=== PATIENT | female | born 1990 | race Caucasian/White ===

== ENCOUNTER 2023-02-06 21:59 | Emergency (ER) | payer OTHER, SELFPAY ==
--- NOTE | ~2023-02-06 | XR_ITS ---
EXAMINATION: XR FOOT, LEFT CLINICAL INFORMATION: Rule out foreign body. Stepped on glass. COMPARISON: None available. TECHNIQUE: AP, lateral, and oblique views of the left foot. FINDINGS: No fracture or dislocation. Alignment is maintained. Joint spaces are maintained. No radiopaque foreign body. XR/XR foot LT min 3V IMPRESSION: Normal left foot. No radiopaque foreign body.
[2023-02-06 22:48] VITALS: BP 134/86; PULSE 92; RESP 18; TEMP 36.9; O2SAT 100; BMI 38.0
[2023-02-07] MEDS: Diphth,Pertus(ACell),Tet Adult 0.5 ML SYRINGE IM (01:41)
[2023-02-07] MEDS: Lidocaine HCl 1 % 20 ML VIAL SUBCUT (01:42)
[2023-02-07 01:44] VITALS: BP 125/80; PULSE 76; RESP 14; TEMP 36.8; O2SAT 99
[2023-02-07 03:17] VITALS: BP 139/88; PULSE 83; RESP 16; O2SAT 100
--- NOTE | 2023-02-07 03:33 | ED_ITS ---
HPI - Wound/Laceration General Chief Complaint: Wound/Laceration Stated Complaint: laceration left foot Time Seen by Provider: 02/07/23 01:19 Source: patient Mode of arrival: ambulatory Limitations: no limitations History of Present Illness HPI narrative: 32-year-old female presents with laceration left foot. Laceration happened prior to arrival. Was a large piece of glass. She removed the glass. Pain is mild to moderate. Worse with ambulation. The pain does not radiate. There is no numbness or tingling. No weakness. Tetanus status is unknown. Related Data Allergies Allergy/AdvReac Type Severity Reaction Status Date / Time Penicillins Allergy Palpitation Verified 02/06/23 22:47 s Sulfa (Sulfonamide Allergy Rash Verified 02/06/23 22:47 Antibiotics) Review of Systems Review of Systems: CONSTITUTIONAL: Denies weight loss, fever and chills. HEENT: Denies changes in vision and hearing. RESPIRATORY: Denies SOB and cough. CV: Denies palpitations no CP. GI: Denies abdominal pain, nausea, vomiting and diarrhea. : Denies dysuria and urinary frequency. MSK: Denies myalgia and joint pain. SKIN: Denies rash and pruritus. NEUROLOGICAL: Denies headache and syncope. PSYCHIATRIC: Denies recent changes in mood. Denies anxiety and depression. All other ROS are negative unless in HPI PMFSH Social History Social History Alcohol intake: current Alcohol intake frequency: a few times a week Smoked in Last 30 Days: No Use of substances other than those prescribed or required for medical reasons: Yes Substance Use Type: Marijuana Substance Use Frequency: Weekly Advance Directives: No Advance Directives Information Provided: Yes Patient : No Physical Exam Vital Signs: Vital Signs: Last Vital Signs Temp 98.3 F 02/07/23 01:44 Pulse 83 02/07/23 03:17 Resp 16 02/07/23 03:17 BP 139/88 02/07/23 03:17 Pulse Ox 100 02/07/23 03:17 O2 Del Method Room Air 02/07/23 03:17 BMI result Body Mass Index 38.0 GEN: Well developed, no acute distress, alert, oriented HEENT: Normocephalic, atraumatic, normal external ears, nose appears normal Eyes: Normal to appearance Neck: Supple, no lymphadenopathy Respiratory: Talks in complete sentences, no respiratory distress Extremities: No clubbing cyanosis or edema Neurologic: No focal neurologic deficits, cranial nerves 2-12 intact, gait n ormal Skin: No rash 3.5 cm to the left lateral plantar aspect of foot Extrem: Ankle/foot/toe images: 1. Course Course Course Narrative: Patient presents with laceration left foot. There are no retained foreign body on x-ray or on physical exam. Sutures were placed. Wound care instructions were discussed. Patient will follow-up in 1 week to 10 days for suture removal. Medications Administered Discontinued Medications Generic Name Dose Route Start Last Admin Trade Name Freq PRN Reason Stop Dose Admin Diphtheria/Tetanus/Acell Pertussis 0.5 ml 02/07/23 01:33 02/07/23 01:41 Diphth,Pertus(Acell),Tet Adult 0.5 Ml Syringe IM 02/07/23 01:34 0.5 ml .ONCE ONE Administration Lidocaine HCl 20 ml 02/07/23 01:33 02/07/23 01:42 Lidocaine Hcl 1 % 20 Ml Vial SUBCUT 02/07/23 01:34 20 ml ONCE ONE Administration Medical Decision Making Medical Decision Making [facility] Narrative: Patient presents with laceration foot. X-ray will be obtained to rule out foreign body. Patient will need suture repair. Sutures to come out 1 week. Patient is already provided wound care instructions. Differential Diagnosis Differential Diagnoses: The differential diagnosis associated with the presentation includes (Her wound, laceration, abrasion, contusion, skin tear) Procedures Laceration Laceration 1: Site: lower extremity (Foot) Side (If applicable): left Size (cm): 3.5 Description: linear Depth: simple, single layer Local Anesthetic: lidocaine 1% Amount of anesthesia used (mL): 3 Pre-repair: wound explored, irrigated extensively and deep structures intact Skin layer closed with: nylon Size (cm): 4-0 Number of sutures: 4 Technique: simple, interrupted Discharge Plan Discharge Clinical Impression: Laceration Patient Disposition: Home, Self-Care Instructions: Laceration (ED) Referrals: Physician,Unknown J [Primary Care Provider] - 1 week (Sutures out in 7-10 days) Stand Alone Forms: Work/School Release Interventions: ED Discharge Assessment Last Done: 02/07/23 03:17 Discharge Date/Time: 02/07/23 03:19
== END 2023-02-07 03:19 | disposition home or self-care (01) ==
PROVIDERS: Emergency Provider Emergency Medicine
DX: S91.312A Laceration without foreign body, left foot, initial encounter (principal); S90.812A Abrasion, left foot, initial encounter; W25.XXXA Contact with sharp glass, initial encounter; Y93.9 Activity, unspecified; Y92.9 Unspecified place or not applicable; Y99.9 Unspecified external cause status; Z23 Encounter for immunization
CPT/HCPCS: 12042; 73630; 90471; 90715; 99284

== ENCOUNTER 2023-02-15 11:57 | Emergency (ER) | payer OTHER, SELFPAY ==
--- NOTE | 2023-02-15 12:39 | ED.GENADULT ---
HPI - General Adult General Chief complaint: General Medical Stated complaint: stiches removal Time Seen by Provider: 02/15/23 12:49 Source: patient, RN notes reviewed and old records reviewed Mode of arrival: ambulatory Limitations: no limitations History of Present Illness HPI narrative: 32-year-old male presents for evaluation of a wound/suture removal the bottom of her left foot. She was seen here 8 days ago and had 4 stitches placed after stepping on a piece of glass. She has been changing the bandages daily and applying bacitracin. She has mild discomfort to the area She is here for suture removal Related Data Allergies Allergy/AdvReac Type Severity Reaction Status Date / Time Penicillins Allergy Palpitation Verified 02/15/23 12:43 s Sulfa (Sulfonamide Allergy Rash Verified 02/15/23 12:43 Antibiotics) [facility] Social History Social History Alcohol intake: current Alcohol intake frequency: a few times a week Substance Use Type: Marijuana Physical Exam ED Vital Signs: Vital Signs - 24 hr 02/15/23 12:42 Temperature 97.6 F Pulse Rate 83 Respiratory Rate 18 Blood Pressure 141/94 H Pulse Oximetry 100 Oxygen Delivery Method Room Air BMI result Body Mass Index 38.0 Skin Other: Patient has a 3 cm linear laceration with [address] to the plantar surface of the left foot. No surrounding erythema, no purulence Medical Decision Making Medical Decision Making MDM Narrative: I was able to remove all 4 sutures easily. There was scanned bleeding that was easily controlled with a Band-Aid. There was a very small amount of wound dehiscence after last which was removed. No evidence of infection. She was instructed to continue with wound care Differential Diagnosis Laceration Wound check Suture removal Acute wound Discharge Plan Discharge Clinical Impression: Encounter for removal of sutures Patient Disposition: Home, Self-Care Instructions: Stitches Removal (ED) Additional Instructions: Change the bandages daily. You may use Motrin Tylenol for any further pain Return for new or worsening symptoms Stand Alone Forms: Work/School Release
[2023-02-15 12:42] VITALS: BP 141/94; PULSE 83; RESP 18; TEMP 36.4; O2SAT 100; BMI 38.0
== END 2023-02-15 13:02 | disposition home or self-care (01) ==
PROVIDERS: Emergency Provider Student in an Organized Health Care Education/Training Program; PCP Nurse Practitioner Family
DX: Z48.02 Encounter for removal of sutures (principal)
CPT/HCPCS: 99282